=== PATIENT | female | born 1975 | race Caucasian/White ===

== ENCOUNTER 2018-07-15 06:16 | Day surgery (SDC) | payer OTHER ==
[2018-07-13 10:54] VITALS: BMI 24.4
[2018-07-15] MEDS ORDERED: fentaNYL CITRATE 250 MCG/5 ML VIAL ONE (07:55)
[2018-07-15] MEDS ORDERED: ROCURONIUM BROMIDE 50 MG/5 ML VIAL ONE (07:55)
[2018-07-15] MEDS ORDERED: PROPOFOL 20 ML ONE ×4 (07:55)
[2018-07-15] MEDS ORDERED: MIDAZOLAM HCL 2 MG/2 ML SINGLE DOSE VIAL ONE ×2 (07:56)
[2018-07-15] MEDS ORDERED: SCOPOLAMINE HYDROBROMIDE 1 PATCH PATCH.TD72 ONE (08:23)
[2018-07-15] MEDS ORDERED: ceFAZolin SODIUM 1 GM VIAL IVPB ONE (08:27)
[2018-07-15] MEDS ORDERED: ceFAZolin SODIUM 1 GM VIAL ONE ×2 (08:27→08:34)
[2018-07-15] MEDS ORDERED: DEXAMETHASONE SOD PHOSPHATE 4 MG/1 ML VIAL ONE (08:27)
[2018-07-15] MEDS ORDERED: ePHEDrine SULFATE 50 MG/1 ML AMPULE ONE (08:53)
[2018-07-15] MEDS ORDERED: GLYCOPYRROLATE 0.2 MG/1 ML VIAL ONE (10:15)
[2018-07-15] MEDS ORDERED: NEOSTIGMINE METHYLSULFATE 0.5 MG/ML - 10 ML MDV ONE (10:15)
[2018-07-15] MEDS ORDERED: NALOXONE HCL 0.4 MG/ML VIAL ONE (10:22)
[2018-07-15] MEDS ORDERED: ONDANSETRON 4 MG/2 ML VIAL IVPUSH PRN (10:39)
[2018-07-15] MEDS ORDERED: oxyCODONE HCL 5 MG TABLET PO PRN (10:39)
[2018-07-15] MEDS ORDERED: LACTATED RINGERS SOLUTION 1,000 ML IV SCH (10:45)
--- NOTE | 2018-07-15 10:49 | OP ---
Operative Note - Note: Operative Date: 07/15/18 Pre-Operative Diagnosis: History of Bilateral Nipple-Sparing Mastectomies, Breast deformities after Implant Reconstruction Operation: Bilateral Breast Implant Removal, Bilateral Revision of Implant Pockets, Left Breast Insertion of Alloderm Sheet, Bilateral Insertion of New Implants. Implants: [place] Memory Gel Xtra Smooth High Profile 490cc x2 Surgeon: Robi Tolbert Anesthesia: General Operative Report Dictated: Yes
--- NOTE | 2018-07-15 12:02 | OP ---
DATE OF OPERATION: 07/15/2018 PREOPERATIVE DIAGNOSIS: History of bilateral nipple sparing mastectomies with breast deformities after implant reconstruction. POSTOPERATIVE DIAGNOSIS: History of bilateral nipple sparing mastectomies with breast deformities after implant reconstruction. PROCEDURE PERFORMED: Bilateral breast implant removal, bilateral revision of implant pockets, left breast insertion of AlloDerm sheet, and bilateral insertion of new implants. SURGEON: Robi Tolbert MD ANESTHESIA: General. BRIEF HISTORY: The patient is approximately 5 years status post bilateral breast reconstruction after nipple sparing mastectomies. Reconstruction was performed with tissue expanders followed by implants, and the patient had concerns regarding irregularities, size, and position of the current implants. DESCRIPTION OF PROCEDURE: The patient was placed on the operating table in supine position. General anesthesia was administered by the anesthesiologist. The area of the chest was prepped and draped in the usual sterile fashion. Markings were made on the patient 1-day prior to surgery, and these markings were now used as a guide for surgery. The right breast was addressed first. The previously used inflammatory scar was opened using a No. 15 scalpel blade and carried down sharply through subcutaneous tissues. Electrocautery was used, and dissection continued deep until the previous implants were identified. Dissection was extended through the length of the incision, and the implant was removed without difficulty. The implant removed was a [place] of 375 mL silicone implant. The Fiber Optic Lighted Retractor was then used to explore the implant pocket and to enlarge it as necessary for the implant that was to be used. The implant selected was a [place] MemoryGel Xtra high profile smooth silicone implant 490 mL in size. An implant sizer was used and placed with the assistance of a Skaggs Funnel. Positions of restriction of the implant pocket were then identified using the sizer and using the Fiber Optic Lighted Retractor this was released. The sizer was replaced to confirm pocket dimensions and position. With the pocket in place, the left breast was similarly dissected. Left breast had modest medial displacement of the implant, and this was considered when enlarging this pocket to accommodate the new implant. A similar procedure was performed using the same sizer to confirm implant dimensions and position. A thin area at the lateral aspect of the inflammatory scar was appreciated preoperatively, and a sheet of medium thickness perforated AlloDerm was trimmed to size and was inserted in the left breast extending approximately 3 cm above the incision down to the level of the inflammatory fold. The AlloDerm was sutured in place using 0 Ethibond suture in interrupted horizontal mattress fashion. The inferior margin of the AlloDerm was left free at this point, and the implant pocket was irrigated with Betadine solution. The implant was then inserted using a Skaggs Funnel, and good implant position was appreciated. The AlloDerm was then reflected over the inferior pole of the implant and sutured inferiorly at the level of the inframammary fold. This was felt to be adequate as the incision on the left breast was actually approximately 3 cm above the fold. Wounds were then closed in layered fashion. Deep tissues were closed with No. 3-0 and 4-0 Biosyn suture in interrupted buried fashion, and skin was closed with 4-0 V-Loc 90 suture in a continuous intradermal fashion. Wounds were then secured with Steri-Strips, and sterile dressings were applied and secured with a surgical bra. The patient was then awoken from anesthesia without any difficulty and taken from the operating room to the recovery room in satisfactory condition having tolerated the procedure well. Gale REYNAGA/[id number]
[2018-07-15 12:35] VITALS: TEMP 98.2
[2018-07-15 13:50] VITALS: BP 100/63; PULSE 85
--- NOTE | 2018-07-16 18:14 | PATH ---
Surgical Pathology Report Patient Name: OSCAR LUCIANO [facility]. Rec. #: [id number] /Age/Gender: 1975 (Age: 42) / F Account: [id number] Location: [facility] SURGICAL Taken: 07/15/2018 Received: 07/15/2018 Reported: 07/16/2018 Physicians: Robi Tolbert M.D. Specimen(s) Received REMOVED BREAST IMPLANT BILATERAL Clinical History Breast cancer Final Diagnosis BREAST IMPLANTS, BILATERAL, REMOVAL: BREAST IMPLANTS (2). MACROSCOPIC DIAGNOSIS. Electronically Signed Delfina Moreno M.D. Gross Description Received fresh labeled "removed breast implants bilateral," are two clear, rubbery, intact breast implants. The specimens measure 12.5 x 12.5 x 3.0 cm and 12.0 x 12.0 x 4.0 cm. No soft tissue is present. No sections are submitted, gross only. /07/15/2018
== END 2018-07-15 14:03 | disposition home or self-care (01) ==
LOC: JASU-SURG 06:16
PROVIDERS: ATTEND Plastic Surgery
PROC: 0HRV0JZ Replacement of Bilateral Breast with Synthetic Substitute, Open Approach (ICD-10-PCS; 2018-07-15)
PROC: 0HPU0JZ Removal of Synthetic Substitute from Left Breast, Open Approach (ICD-10-PCS; 2018-07-15)
PROC: 0HPT0JZ Removal of Synthetic Substitute from Right Breast, Open Approach (ICD-10-PCS; 2018-07-15)
PROC: 0HWU0JZ Revision of Synthetic Substitute in Left Breast, Open Approach (ICD-10-PCS; principal; 2018-07-15 08:00)
PROC: 0HWT0JZ Revision of Synthetic Substitute in Right Breast, Open Approach (ICD-10-PCS; 2018-07-15 08:00)
DX: N65.0 Deformity of reconstructed breast (principal); Z85.3 Personal history of malignant neoplasm of breast
CPT/HCPCS: 84703; 88300-TC; 94760

== ENCOUNTER 2021-05-25 09:10 | Day surgery (SDC) | payer BC ==
[2021-05-25] MEDS ORDERED: ZOLEDRONIC ACID/MAN/WATER 5 MG/100 ML INFUS..BTL IVPB ONE (09:45)
[2021-05-25 11:34] VITALS: BP 106/53; PULSE 102; TEMP 98.4
== END 2021-05-25 11:30 | disposition home or self-care (01) ==
LOC: FINFUSION 09:10 → FM/S 09:13 → FINFUSION 09:13 → FM/S 11:30
PROVIDERS: ATTEND Internal Medicine Endocrinology, Diabetes & Metabolism
PROC: 3E033GC Introduction of Other Therapeutic Substance into Peripheral Vein, Percutaneous Approach (ICD-10-PCS; principal; 2021-05-25)
DX: M88.9 Osteitis deformans of unspecified bone (principal)
CPT/HCPCS: 96365; J3489